=== PATIENT | male | born 1985 | race Two or more races ===

== ENCOUNTER 2016-08-21 08:14 | Outpatient (CLI) | payer BC ==
[2016-08-21 09:13] LABS: BASOPHILS % (AUTO) 0.6 % (0.0-2.0); EOSINOPHILS # (AUTO) 0.3 /CMM (0.0-0.7); EOSINOPHILS % (AUTO) 6.3 % (0.0-6.0); HEMATOCRIT 48 % (39-51); HEMOGLOBIN 15.7 g/dL (13.5-17.5); LYMPHOCYTES # (AUTO) 1.9 /CMM (0.8-4.8); LYMPHOCYTES % (AUTO) 35.4 % (20.0-44.0); MEAN CORPUSCULAR HEMOGLOBIN 28 PG (26.0-33.0); MEAN CORPUSCULAR HGB CONC 33 g/dl (31.0-36.0); MEAN CORPUSCULAR VOLUME 86 fL (80-96); MONOCYTES # (AUTO) 0.4 /CMM (0.1-1.30); MONOCYTES % (AUTO) 6.4 % (2.0-12.0); NEUTROPHILS # (AUTO) 2.8 /CMM (1.8-8.9); NEUTROPHILS % (AUTO) 51.3 % (43.0-81.0); PLATELET COUNT (AUTO) 273 /CMM (150-450); RDW COEFFICIENT OF VARIATION 12.7 (11.5-15.0); WHITE BLOOD COUNT (AUTO) 5.5 K/uL (4.3-11.0)
[2016-08-21 09:30] LABS: BILIRUBIN,TOTAL 0.4 mg/dL (0.2-1.0); CALCIUM, SERUM 8.7 mg/dL (8.5-10.1); POTASSIUM 4.5 mmol/L (3.5-5.1); TOTAL PROTEIN, SERUM 7.4 g/dL (6.4-8.2)
[2016-08-21 09:38] LABS: THYROID STIMULATING HORMONE 1.95 uIU/mL (0.358-3.74)
[2016-08-22 09:30] LABS: HSV 2 IgG, TYPE SPECIFIC <0.91 index (0.00-0.90)
[2016-08-22 23:11] LABS: *NEISSERIA GONORRHOEAE NAA Negative (Negative); CHLAMYDIA TRACHOMATIS NAA Negative (Negative)
== END 2016-08-21 23:59 | disposition home or self-care (01) ==
LOC: LAB 08:14
PROVIDERS: ATTEND Family Medicine
DX: Z11.3 Encounter for screening for infections with a predominantly sexual mode of transmission (principal); L28.2 Other prurigo
CPT/HCPCS: 80053-TC; 84439-TC; 84443-TC; 85025-TC; 86592; 87491; 87591

== ENCOUNTER 2016-10-03 11:23 | Outpatient (CLI) | payer BC | END 2016-10-03 23:59 | disposition home or self-care (01) | LOC: RAD 11:23 | PROVIDERS: ATTEND Family Medicine | DX: M25.511 Pain in right shoulder (principal); R07.81 Pleurodynia; W19.XXXA Unspecified fall, initial encounter | CPT/HCPCS: 71100-TC; 73000-TC; 73030-TC; 73060-TC ==

== ENCOUNTER 2016-10-12 04:10 | Inpatient (IN) | payer BC ==
[~2016-10-12] VITALS: Ht 170.2 cm; Wt 70.3 kg
[2016-10-12] VITALS (7 sets, daily range): BP systolic 95–112; BP diastolic 58–70
--- NOTE | 2016-10-12 04:50 | NUR ---
PT AMBULATORY TO ER BED 7 PT C/O DIFUSE ABD PAIN 8/10 SINCE YESTERDAY, BLOATING LIKE WITH NAUSEA. PT AOX 4 RR EVEN AND UNLABORD. NO SOB NOTED. NAD NOTED. NO NVD AT THIS TIME. PT GOWNED AND PLACED ON MONITOR WAITING FOR MD ERICKSON.
[2016-10-12] MEDS ORDERED: ONDANSETRON HCL/PF 4 MG/2 ML VIAL ONE (04:58)
[2016-10-12] MEDS ORDERED: IV NS 0.9% 1,000 ML ONE (04:58)
[2016-10-12] MEDS ORDERED: IV SET PRIMARY 1 EA INFUS.SET MC ONE ×2 (04:58→18:13)
[2016-10-12] MEDS ORDERED: MORPHINE SULFATE INJ 4 MG/ML DISP.SYRIN ONE ×2 (04:58→06:38)
[2016-10-12] MEDS ORDERED: ONDANSETRON HCL/PF 4 MG/2 ML VIAL IVP ONE (05:00)
[2016-10-12] MEDS ORDERED: IV NS 0.9% 1,000 ML BAG IV ONE (05:00)
[2016-10-12] MEDS ORDERED: MORPHINE SULFATE INJ 2 MG/ML DISP.SYRIN IV ONE ×2 (05:00→07:00)
--- NOTE | 2016-10-12 05:05 | NUR ---
URINE COLLECTED. SENT TO LAB
[2016-10-12 05:14] LABS: BASOPHILS % (AUTO) 0.4 % (0.0-2.0); EOSINOPHILS # (AUTO) 0.2 /CMM (0.0-0.7); EOSINOPHILS % (AUTO) 1.4 % (0.0-6.0); HEMATOCRIT 45 % (39-51); HEMOGLOBIN 15.3 g/dL (13.5-17.5); LYMPHOCYTES # (AUTO) 1.5 /CMM (0.8-4.8); LYMPHOCYTES % (AUTO) 12.6 % (20.0-44.0); MEAN CORPUSCULAR HEMOGLOBIN 29 PG (26.0-33.0); MEAN CORPUSCULAR HGB CONC 34 g/dl (31.0-36.0); MEAN CORPUSCULAR VOLUME 85 fL (80-96); MONOCYTES # (AUTO) 0.5 /CMM (0.1-1.30); MONOCYTES % (AUTO) 4.6 % (2.0-12.0); NEUTROPHILS # (AUTO) 9.5 /CMM (1.8-8.9); PLATELET COUNT (AUTO) 291 /CMM (150-450); RDW COEFFICIENT OF VARIATION 12.7 (11.5-15.0); RED BLOOD CELL COUNT(AUTO) 5.26 MIL/uL (4.5-6.0); WHITE BLOOD COUNT (AUTO) 11.7 K/uL (4.3-11.0)
[2016-10-12 05:16] LABS: APPEARANCE,URINE CLEAR (CLEAR); BILIRUBIN,URINE NEGATIVE (NEGATIVE); BLOOD, URINE NEGATIVE Ery/uL (NEGATIVE); COLOR,URINE YELLOW (YELLOW); KETONES,URINE TRACE (NEGATIVE); LEUKOCYTE ESTERASE ,URINE NEGATIVE (NEGATIVE); NITRITE, URINE NEGATIVE (NEGATIVE); PROTEIN,URINE NEGATIVE (NEGATIVE); UGLUCOSE NEGATIVE (NEGATIVE); UROBILINOGEN,URINE 0.2 EU/dL (0.2)
[2016-10-12 05:23] LABS: CALCIUM, SERUM 8.8 mg/dL (8.5-10.1); CREATININE 0.9 mg/dL (0.6-1.3); POTASSIUM 3.5 mmol/L (3.5-5.1)
--- NOTE | 2016-10-12 05:27 | NUR ---
PT TO CT.
[2016-10-12] MEDS ORDERED: IOHEXOL-300 100 ML VIAL IV ONE (05:28)
[2016-10-12] MEDS ORDERED: IV NS 0.9% 250 ML IV ONE (05:28)
[2016-10-12] MEDS ORDERED: CT SWABBABLE VALVE TRANS SET 1 EA INFUS.SET MC ONE (05:28)
[2016-10-12 05:29] LABS: ALBUMIN 3.9 g/dL (3.4-5.0); BILIRUBIN,DIRECT 0.1 mg/dL (0.0-0.2); BILIRUBIN,TOTAL 0.4 mg/dL (0.2-1.0); TOTAL PROTEIN, SERUM 7.4 g/dL (6.4-8.2)
--- NOTE | 2016-10-12 05:43 | NUR ---
PT RETURNED FROM CT.
[2016-10-12 06:15] LABS: BACTERIA,URINE None seen /HPF (None Seen); RBC,URINE NONE SEEN /HPF (0-2); SQUAMOUS EPITHELIAL CELL,UR Few /HPF (None Seen); WBC,URINE 0-2 /HPF (0-3)
[2016-10-12] MEDS ORDERED: MORPHINE SULFATE INJ 2 MG/ML DISP.SYRIN ONE (06:38)
[2016-10-12] MEDS ORDERED: PIPERACILLIN /TAZOBACTAM 3.375 G VIAL IV ONE (06:38)
[2016-10-12] MEDS ORDERED: IV SET PRIMARY PUMP SET 1 EA INFUS.SET MC ONE ×4 (06:38→18:15)
--- NOTE | 2016-10-12 06:47 | NUR ---
DR. REAL SPEAKING TO DR. TORREZ
[2016-10-12] MEDS ORDERED: PIPERACILLIN /TAZOBACTAM 3.375 G in IV D5W 50 ML IV ONE (07:00)
--- NOTE | 2016-10-12 07:16 | NUR ---
REPORT GIVEN TO AN BROTHERS AND AN RYAN FOR C.O.C
[2016-10-12] MEDS ORDERED: IV NS 0.9% 1,000 ML IV PRN (08:50)
--- NOTE | 2016-10-12 08:55 | NUR ---
RN NOTES ADMITTED A 31Y M FROM ER WITH DX OF APPENDICITIS TRANSPORTED VIA W/C ACCOMPANIED BY TECH. FAMILY MEMBERS AT BEDSIDE. PT IS AWAKE ALERT ORIENTED X4 ABLE TO COMMUNICATE NEEDS, ON RA TL WELL. VS TAKEN AND RECORDED. PER PT HE DOESN'T HAVE ANY SKIN ISSUES. NOTED WITH C/O ABD PAIN 09/29 THIS TIME, PT RECEIVED MORPHINE PRN AT ER, REFUSED TO RECEIVE PAIN MEDS AT THIS TIME. ORIENTED PT TO UNIT AND CALL LIGHT USE, ALL NEEDS ATTENDED. SAFETY MAINTAINED. CALL LIGHT WITHIN REACH, WILL CONT TO MONITOR
[2016-10-12] MEDS ORDERED: HYDROCODONE/APAP 5/325MG 1 EACH TABLET PO PRN ×3 (09:00→17:30)
[2016-10-12] MEDS ORDERED: MAG HYDROX/AL HYDROX/SIMETH 30 ML UDC PO PRN (09:00)
[2016-10-12] MEDS ORDERED: ACETAMINOPHEN 325 MG TABLET PO PRN (09:00)
[2016-10-12] MEDS ORDERED: PANTOPRAZOLE 40 MG TABLET.DR PO SCH (09:00)
[2016-10-12] MEDS ORDERED: PIPERACILLIN /TAZOBACTAM 4.5 G in IV D5W 50 ML IV SCH (09:00)
[2016-10-12] MEDS ORDERED: MAGNESIUM HYDROXIDE 30 ML UDC PO PRN (09:00)
[2016-10-12] MEDS ORDERED: ONDANSETRON HCL/PF 4 MG/2 ML VIAL IVP PRN (09:00)
[2016-10-12] MEDS ORDERED: Z GUARD REMEDY 2 OZ OINT TP PRN (09:00)
[2016-10-12] MEDS ORDERED: SECONDARY IV SET 1 EA INFUS.SET MC ONE (11:59)
[2016-10-12] MEDS: PANTOPRAZOLE 40 MG VIAL IV SCH (12:05)
[2016-10-12] MEDS: PIPERACILLIN /TAZOBACTAM 3.375 G in IV D5W 50 ML IV SCH ×2 (12:05→18:07)
[2016-10-12] MEDS ORDERED: LIDOCAINE HCL/PF 1% 30 ML SDV ONE (13:47)
[2016-10-12] MEDS ORDERED: BUPIVACAINE MPF W/EPI 0.25% 30 ML VIAL ONE (13:47)
--- NOTE | 2016-10-12 14:07 | NUR ---
RN NOTES PT PICKED UP FOR SURGERY IN OR FOR LAPAROSCOPIC APPENDECTOMY
[2016-10-12] MEDS ORDERED: ANESTHESIA TRAY IN PYXIS 1 EA TRAY MC ONE (17:06)
[2016-10-12] MEDS ORDERED: HYDROMORPHONE 1 MG/1 ML DISP.SYRIN IV PRN ×2 (17:30)
[2016-10-12] MEDS ORDERED: KETOROLAC TROMETHAMINE INJ 30 MG/ML VIAL IV PRN ×2 (17:30)
[2016-10-12] MEDS ORDERED: IV LR 1000 ML 1,000 ML IV ONE (17:30)
--- NOTE | 2016-10-12 18:53 | NUR ---
RN NOTES RESTING COMFORTABLY IN BED WITH NO DISTRESS NOTED. BREATHING EVEN AND UNLABORED. VITAL SIGNS WNL. COMPLAINT OF PAIN 07/30. OFFERED PAIN MEDICATION, PATIENT REFUSED. PATIENT SAID HE STILL CAN TOLERATE THE PAIN. NEEDS ATTENDED. KEPT CLEAN AND DRY.
[2016-10-12] MEDS ORDERED: ZOLPIDEM TARTRATE 5 MG TABLET PO PRN (22:00)
--- NOTE | 2016-10-12 22:56 | NUR ---
MS/RN PATIENT IS SLEEPING AT THIS TIME, AROUSABLE, APPEAR COMFORTABLE, NO SIGNS OF DISTRESS NOTED, CALL LIGHT IN REACH.WILL CONTINUE TO MONITOR.
[2016-10-13] MEDS: PIPERACILLIN /TAZOBACTAM 3.375 G in IV D5W 50 ML IV SCH ×2 (01:08→06:35)
[2016-10-13 04:00] VITALS: BP 98/55
[2016-10-13 06:29] LABS: BASOPHILS % (AUTO) 0.2 % (0.0-2.0); EOSINOPHILS % (AUTO) 0.1 % (0.0-6.0); HEMATOCRIT 43 % (39-51); HEMOGLOBIN 14.2 g/dL (13.5-17.5); LYMPHOCYTES # (AUTO) 1.6 /CMM (0.8-4.8); LYMPHOCYTES % (AUTO) 13.1 % (20.0-44.0); MEAN CORPUSCULAR HEMOGLOBIN 29 PG (26.0-33.0); MEAN CORPUSCULAR HGB CONC 33 g/dl (31.0-36.0); MEAN CORPUSCULAR VOLUME 86 fL (80-96); MONOCYTES # (AUTO) 0.6 /CMM (0.1-1.30); MONOCYTES % (AUTO) 4.8 % (2.0-12.0); NEUTROPHILS # (AUTO) 9.7 /CMM (1.8-8.9); NEUTROPHILS % (AUTO) 81.8 % (43.0-81.0); PLATELET COUNT (AUTO) 281 /CMM (150-450); RDW COEFFICIENT OF VARIATION 12.9 (11.5-15.0); RED BLOOD CELL COUNT(AUTO) 4.97 MIL/uL (4.5-6.0); WHITE BLOOD COUNT (AUTO) 11.9 K/uL (4.3-11.0)
--- NOTE | 2016-10-13 06:41 | NUR ---
MS/RN PATIENT IS DOZING INTERMITTENTLY, APPEAR COMFORTABLE, NO SIGNS OF DISTRESS NOTED, MEDICATED WITH PAIN MEDICATION PER REQUEST, NO C/O NAUSEA/VOMITING. ALL NEEDS ATTENDED AT THIS TIME. WILL CONTINUE TO MONITOR.
[2016-10-13 06:45] LABS: ALBUMIN 3.2 g/dL (3.4-5.0); BILIRUBIN,TOTAL 0.5 mg/dL (0.2-1.0); CALCIUM, SERUM 8.6 mg/dL (8.5-10.1); CREATININE 0.9 mg/dL (0.6-1.3); MAGNESIUM 1.9 mg/dL (1.8-2.4); PHOSPHORUS 4.8 mg/dL (2.5-4.9); TOTAL PROTEIN, SERUM 6.8 g/dL (6.4-8.2)
[2016-10-13 08:00] VITALS: BP 99/49
[2016-10-13] MEDS: PANTOPRAZOLE 40 MG VIAL IV SCH (10:49)
--- NOTE | 2016-10-13 11:36 | NUR ---
DISCHARGE NOTE PROVIDED ALL D/C PAPER WORK, EDUCATION, PRESCRIPTION AND 1 WEEK OFF WORK NOTE. PATIENT SIGN D/C PAPER AND BELONGINGS LIST. LAC AND L HAND IV REMOVED, MINIMAL BLEEDING, STOPPED. PATIENT AMBULATING WITH STEADY GAIT. PATIENT PASSING GAS, DENIES N/V. DENIES PAIN. PROVIDED DR. VASQUEZ PHONE NUMBER FOR F/U APPOINTMENT IN 2 WEEKS. PATIENT REFUSED PENUMO VACCINE. PROVIDED LAP WOUND MANAGEMENT INSTRUCTIONS, NO DISCHARGE/ BLEEDING AT SITE.PT STATED WANTS TO AMBULATE OUT OF HOSPITAL WITH COUSIN. DR. VASQUEZ AND DR. DAMICO BOTH SAID PATIENT STABLE TO GO HOME. PATIENT VERBALIZED UNDERSTANDING.
--- NOTE | 2016-10-13 11:48 | NUR ---
PATIENT LEFT ACCOMPANIED BY FAMILY. AMBULATING STEADY, STABLE. PROVIDED DRESSING CHANGE FOR 3 LAP SITES. PT. SAID HE DOESN'T WANT TO REMOVE BANDAGE AT THIS TIME, PHOTO TAKEN OF SITES WITH BANDAGE.
== END 2016-10-13 12:04 | disposition home or self-care (01) | DRG 335 ==
LOC: ER 04:13 → MEDSG1 08:21
PROVIDERS: ADMIT Internal Medicine; ATTEND Internal Medicine
PROC: 0DTJ4ZZ Resection of Appendix, Percutaneous Endoscopic Approach (ICD-10-PCS; principal; 2016-10-12 15:04)
PROC: 0DNV4ZZ Release Mesentery, Percutaneous Endoscopic Approach (ICD-10-PCS; principal; 2016-10-12 15:04)
DX: K35.80 Unspecified acute appendicitis (principal); A41.9 Sepsis, unspecified organism
CPT/HCPCS: 36415; 80048-TC; 80053-TC; 80076-TC; 81000-TC; 83690-TC; 83735-TC; 84100-TC; 85025-TC; 87081-TC; A4606; A6403; C9113; J1885; J2270; J2405; J2543; J3490; J7030; J7050; J7060; J7120; Q9967; Z7610

== ENCOUNTER 2018-08-07 13:55 | Outpatient (CLI) | payer BC | END 2018-08-07 23:59 | disposition home or self-care (01) | LOC: RAD 13:55 | PROVIDERS: ATTEND Nurse Practitioner Acute Care | DX: R05 Cough (principal) | CPT/HCPCS: 71045-TC ==